=== PATIENT | male | born 1940 | race Caucasian/White ===

== ENCOUNTER → 2016-08-10 | Outpatient (REF) | payer MEDICARE ==
[2016-08-10 12:11] LABS: MEAN CORPUSCULAR HEMOGLOBIN 28.9 pg (27.0-33.0); MEAN CORPUSCULAR HGB CONC 31.8 g/dl (32.0-36.5); MEAN CORPUSCULAR VOLUME 90.8 fl (80.0-96.0); RED CELL DISTRIBUTION WIDTH 13.1 % (11.5-14.5)
[2016-08-10 12:34] LABS: ALBUMIN 3.8 GM/DL (3.2-5.2); ALBUMIN/GLOBULIN RATIO 1.23 (1.00-1.93); BILIRUBIN,TOTAL 0.3 MG/DL (0.2-1.0); CALCIUM LEVEL 9.3 MG/DL (8.8-10.2); CREATININE FOR GFR 1.54 MG/DL (0.70-1.30); GLOMERULAR FILTRATION RATE 46.7 (>42); PERCENT SATURATION 15.8 % (19.7-37.4); POTASSIUM SERUM 4.5 MEQ/L (3.5-5.1); TOTAL PROTEIN 6.9 GM/DL (6.4-8.2)
[2016-08-10 13:07] LABS: ANISOCYTOSIS 1+; BANDS 2 % (< 11); BASOPHILS 1 % (0-4); EOSINOPHILS 1 % (0-5)
[2016-08-11 13:21] LABS: PRETREATED FOLATE FOR RBCFOL 8.9 NG/ML
== END ==
LOC: M SFHCPLAZ 08:48
PROVIDERS: ATTEND Physician Assistant Medical
DX: E53.8 Deficiency of other specified B group vitamins (principal); N18.3 Chronic kidney disease, stage 3 (moderate); E11.9 Type 2 diabetes mellitus without complications; E55.9 Vitamin D deficiency, unspecified

== ENCOUNTER → 2017-02-10 | Outpatient (REF) | payer MEDICARE ==
[2017-02-10 17:44] LABS: ALBUMIN 3.9 GM/DL (3.2-5.2); ALBUMIN/GLOBULIN RATIO 1.26 (1.00-1.93); BILIRUBIN,TOTAL 0.4 MG/DL (0.2-1.0); CALCIUM LEVEL 9.6 MG/DL (8.8-10.2); CREATININE FOR GFR 1.39 MG/DL (0.70-1.30); GLOMERULAR FILTRATION RATE 52.6 (>42); PERCENT SATURATION 21.1 % (19.7-50.0); POTASSIUM SERUM 4.1 MEQ/L (3.5-5.1)
[2017-02-10 18:58] LABS: MEAN CORPUSCULAR HEMOGLOBIN 29.1 pg (27.0-33.0); MEAN CORPUSCULAR HGB CONC 32.9 g/dl (32.0-36.5); MEAN CORPUSCULAR VOLUME 88.4 fl (80.0-96.0); RED CELL DISTRIBUTION WIDTH 12.7 % (11.5-14.5); WHITE BLOOD COUNT 5.3 10^3/uL (4.0-10.0)
[2017-02-10 19:15] LABS: CBCMD ORDERED? YES (YES)
[2017-02-10 20:44] LABS: BASOPHILS 1 % (0-4); EOSINOPHILS 3 % (0-5)
[2017-02-12 11:32] LABS: PRETREATED FOLATE FOR RBCFOL 14.6 NG/ML
== END ==
LOC: M SFHCPLAZ 15:34
PROVIDERS: ATTEND Physician Assistant Medical
DX: E53.8 Deficiency of other specified B group vitamins (principal); E11.9 Type 2 diabetes mellitus without complications; N18.3 Chronic kidney disease, stage 3 (moderate); E55.9 Vitamin D deficiency, unspecified

== ENCOUNTER → 2017-06-24 | Outpatient (REF) | payer MEDICARE | LOC: M SFHCPLAZ 08:49 | DX: E78.2 Mixed hyperlipidemia (principal); E55.9 Vitamin D deficiency, unspecified; E11.9 Type 2 diabetes mellitus without complications ==

== ENCOUNTER → 2017-07-08 | Outpatient (CLI) | payer MEDICARE ==
[2017-07-08 10:42] LABS: ALBUMIN 3.8 GM/DL (3.2-5.2); ALBUMIN/GLOBULIN RATIO 1.15 (1.00-1.93); ALKALINE PHOSPHATASE 31 U/L (45-117); ALT/SGPT 21 U/L (12-78); ANION GAP 9 MEQ/L (8-16); AST/SGOT 15 U/L (7-37); BILIRUBIN,TOTAL 0.4 MG/DL (0.2-1.0); BLOOD UREA NITROGEN 22 MG/DL (7-18); CALCIUM LEVEL 9.1 MG/DL (8.8-10.2); CARBON DIOXIDE LEVEL 25 MEQ/L (21-32); CHLORIDE LEVEL 107 MEQ/L (98-107); CHOLESTEROL LEVEL 118 MG/DL (<200); CREATININE FOR GFR 1.56 MG/DL (0.70-1.30); GLOMERULAR FILTRATION RATE 45.9 (>42); GLUCOSE, FASTING 172 MG/DL (70-100); HDL CHOLESTEROL 23 MG/DL (>40); LDL CHOLESTEROL 61.2 MG/DL (<100); NON-HDL-C 95 MG/DL; POTASSIUM SERUM 4.7 MEQ/L (3.5-5.1); SODIUM LEVEL 141 MEQ/L (136-145); TOTAL PROTEIN 7.1 GM/DL (6.4-8.2); TRIGLYCERIDES LEVEL 169 MG/DL (<150)
[2017-07-08 10:48] LABS: TOTAL 25(OH) VITAMIN D 31.6 NG/ML (30.0-100.0)
[2017-07-08 11:41] LABS: ESTIMATED AVERAGE GLUCOSE 186 MG/DL (60-110); HEMOGLOBIN A1c 8.1 %
== END ==
LOC: M WUC 08:24
DX: E55.9 Vitamin D deficiency, unspecified (principal); E11.9 Type 2 diabetes mellitus without complications; E78.2 Mixed hyperlipidemia
CPT/HCPCS: 80053

== ENCOUNTER 2018-01-07 09:34 | Emergency (ER) | payer MEDICARE ==
[2018-01-07] MEDS: NITROGLYCERIN 0.4 MG SUBL TABLET SL ×3 (10:36→11:13)
[2018-01-07 10:40] LABS: BASO # 0.1 10^3/uL (0.0-0.2); BASO % 0.8 % (0.0-1.0); EOS # 0.1 10^3/uL (0.0-0.50); HEMATOCRIT 47.1 % (42.0-52.0); HEMOGLOBIN 15.8 g/dl (13.5-17.5); IMMATURE GRANULOCYTE % 0.5 % (0-3.0); LYMPH # 0.9 10^3/uL (1.5-4.5); LYMPH % 14.9 % (24.0-44.0); MEAN CORPUSCULAR HEMOGLOBIN 29.5 pg (27.0-33.0); MEAN CORPUSCULAR HGB CONC 33.5 g/dl (32.0-36.5); MONO # 0.4 10^3/uL (0.0-0.8); MONO % 6.8 % (0.0-5.0); NEUTROPHILS # 4.4 10^3/uL (1.8-7.7); PLATELET COUNT, AUTOMATED 193 10^3/uL (150-450); RED BLOOD COUNT 5.35 10^6/uL (4.30-6.10); RED CELL DISTRIBUTION WIDTH 12.8 % (11.5-14.5); WHITE BLOOD COUNT 5.9 10^3/uL (4.0-10.0)
[2018-01-07 10:58] LABS: INR 1.02; PROTHROMBIN TIME 13.5 SECONDS (12.1-14.4)
[2018-01-07 11:25] LABS: ALBUMIN 3.7 GM/DL (3.2-5.2); ALBUMIN/GLOBULIN RATIO 1.23 (1.00-1.93); ALKALINE PHOSPHATASE 36 U/L (45-117); ALT/SGPT 27 U/L (12-78); ANION GAP 11 MEQ/L (8-16); AST/SGOT 15 U/L (7-37); BILIRUBIN,DIRECT 0.1 MG/DL (0.0-0.2); BILIRUBIN,TOTAL 0.4 MG/DL (0.2-1.0); BLOOD UREA NITROGEN 14 MG/DL (7-18); CALCIUM LEVEL 9.5 MG/DL (8.8-10.2); CARBON DIOXIDE LEVEL 23 MEQ/L (21-32); CHLORIDE LEVEL 104 MEQ/L (98-107); CPK CREATINE PHOSPHOKINASE 68 U/L (39-308); CREATININE FOR GFR 1.51 MG/DL (0.70-1.30); GLOMERULAR FILTRATION RATE 47.7 (>42); GLUCOSE, FASTING 289 MG/DL (70-100); LIPASE 145 U/L (73-393); MB/CK RELATIVE INDEX 5.29 (< OR =4); NT-PRO BNP 453 PG/ML (<450); POTASSIUM SERUM 4.4 MEQ/L (3.5-5.1); SODIUM LEVEL 138 MEQ/L (136-145); THYROID STIMULATING HORMONE 0.648 uIU/ML (0.358-3.740); TOTAL PROTEIN 6.7 GM/DL (6.4-8.2); TROPONIN I < 0.02 NG/ML (< 0.10)
[2018-01-07] MEDS ORDERED: ISOVUE-370 76% 100ML VIAL (Q9967) As Ordered (11:50)
[2018-01-07] MEDS: ONDANSETRON 4MG/2ML VIAL (J2405) IV (13:49)
[2018-01-07] MEDS: MORPHINE 4 MG/ML 1ML VIAL/SYRINGE (J2270) IV (13:50)
[2018-01-07 15:01] LABS: CPK CREATINE PHOSPHOKINASE 73 U/L (39-308); MB/CK RELATIVE INDEX 4.25 (< OR =4); TROPONIN I < 0.02 NG/ML (< 0.10)
== END 2018-01-07 16:40 | disposition left against medical advice (07) ==
LOC: M ED 09:34
DX: R07.9 Chest pain, unspecified (principal); R94.31 Abnormal electrocardiogram [ECG] [EKG]; R01.1 Cardiac murmur, unspecified; I48.92 Unspecified atrial flutter; E11.9 Type 2 diabetes mellitus without complications; I10 Essential (primary) hypertension; E78.79 Other disorders of bile acid and cholesterol metabolism; Z86.73 Personal history of transient ischemic attack (TIA), and cerebral infarction without residual deficits; Z79.899 Other long term (current) drug therapy; Z79.84 Long term (current) use of oral hypoglycemic drugs
CPT/HCPCS: J2270

== ENCOUNTER → 2018-02-04 | Outpatient (CLI) | payer MEDICARE ==
[2018-02-04 08:58] LABS: BLOOD UREA NITROGEN 20 MG/DL (7-18); CREATININE FOR GFR 1.45 MG/DL (0.70-1.30); GLUCOSE, FASTING 220 MG/DL (70-100); SODIUM LEVEL 142 MEQ/L (136-145)
[2018-02-04 08:59] LABS: ANION GAP 9 MEQ/L (8-16); CALCIUM LEVEL 9.1 MG/DL (8.8-10.2); CARBON DIOXIDE LEVEL 27 MEQ/L (21-32); CHLORIDE LEVEL 106 MEQ/L (98-107); POTASSIUM SERUM 4.3 MEQ/L (3.5-5.1); TROPONIN I < 0.02 NG/ML (< 0.10); URIC ACID 4.2 MG/DL (3.5-7.2)
[2018-02-04 09:43] LABS: ESTIMATED AVERAGE GLUCOSE 186 MG/DL (60-110); HEMOGLOBIN A1c 8.1 %
[2018-02-04 10:08] LABS: MAU/CREAT RATIO 58.5 MCG/MG (0.0-30.0)
== END ==
LOC: M LAB 07:30
DX: E11.9 Type 2 diabetes mellitus without complications (principal); N18.3 Chronic kidney disease, stage 3 (moderate); Z09 Encounter for follow-up examination after completed treatment for conditions other than malignant neoplasm
CPT/HCPCS: 84550

== ENCOUNTER → 2018-04-26 | Outpatient (CLI) | payer MEDICARE ==
[~2018-04-26] MED LIST: ADV250INH; AMLO10TA5; BENA20TA8; FENO134C; GLIM2TAB; METF10004; METO1TAB87; SIMV5TAB12; VENTAER; VITA10002
[2018-04-26 07:38] LABS: CALCIUM LEVEL 9.1 MG/DL (8.8-10.2); CREATININE FOR GFR 1.48 MG/DL (0.70-1.30); GLOMERULAR FILTRATION RATE 48.8 (>42); POTASSIUM SERUM 4.3 MEQ/L (3.5-5.1)
== END ==
LOC: M LAB 06:53
PROVIDERS: ATTEND Family Medicine
DX: I10 Essential (primary) hypertension (principal)

== ENCOUNTER → 2018-05-11 | Outpatient (CLI) | payer MEDICARE ==
[2018-05-11 07:32] LABS: HEMOGLOBIN A1c 9.2 %
[2018-05-11 07:36] LABS: CREATININE FOR GFR 1.49 MG/DL (0.70-1.30); GLOMERULAR FILTRATION RATE 48.4 (>42); POTASSIUM SERUM 4.2 MEQ/L (3.5-5.1); URIC ACID 3.9 MG/DL (3.5-7.2)
[2018-05-11 07:47] LABS: MAU/CREAT RATIO 108.9 MCG/MG (0.0-30.0)
== END ==
LOC: M LAB 06:40
PROVIDERS: ATTEND Family Medicine
DX: E11.9 Type 2 diabetes mellitus without complications (principal); I10 Essential (primary) hypertension

== ENCOUNTER 2018-06-09 12:57 | Day surgery (SDC) | payer MEDICARE ==
[~2018-06-09] VITALS: Ht 170.2 cm; Wt 93.2 kg
[~2018-06-09 12:57] MED LIST changes: +ADV250INH INH; +ALBU83IN INH; +AMLO10TA5 PO; +ASPI325T PO; +BALANCED SALT IRRIGATION SOLUTION 500ML BAG (FOR OR EYE MACHINE) As Ordered ONE; +BENA40TA7 PO; +CEFUROXIME 1MG/0.1ML INTRACAMERAL INJ As Ordered ONE; +DUOVISC (0.50ML VISCOAT/0.55ML PROVISC) OPHTH KIT As Ordered ONE; +FISH1000 PO; +GLIM4TAB PO; +HYDR-3910 PO; +LIDOCAINE 0.75%/EPINEPHRINE 0.025% IN BSS 1ML SYR INTRACAMERAL (OR ONLY) As Ordered ONE; +METF10004 PO; +MIDAZOLAM INJ 2 MG/2 ML VIAL (J2250) As Ordered ONE; +OFLOXACIN 0.3 % (OCUFLOX) OPTH SOL 5ML OS ONE; +PHENYLEPHRINE 2.5% OPHTH SOL 2ML OS ONE; +POVIDONE-IODINE 5% OPHTH PREP SOL 30ML As Ordered ONE; +PROPARACAINE 0.5% OPHTH SOL 15ML OS ONE; +SIMV20TA2 PO; +TROPICAMIDE 1% OPHTH SOLN 2ML OS ONE; +VENTAER INH; +VITA200048 PO; +VITA500T3 PO; +fentaNYL 100 MCG/2 ML INJECTION (J3010) As Ordered ONE
[2018-06-09 15:10] VITALS: BP 180/82
--- NOTE | 2018-06-10 15:15 | RO ---
DATE OF PROCEDURE: 06/09/2018 PREOPERATIVE DIAGNOSIS: 1. Visually significant nuclear sclerotic cataract left eye. POSTOPERATIVE DIAGNOSIS: 1. Visually significant nuclear sclerotic cataract left eye. PROCEDURE: 1. Cataract extraction with use of phacoemulsification and placement of intraocular lens, AU00T0, 21.5, D, left eye. SURGEON: Mike Law DO CHIEF INTERNAL AUDITOR: None. ANESTHESIA: Local with monitored anesthesia care (MAC). COMPLICATIONS: None. POSTOPERATIVE CONDITION: Stable. INDICATIONS FOR SURGERY: 1. Blurred vision affecting patients activities of daily living. DESCRIPTION OF PROCEDURE: The patient was seen in the preoperative area and properly identified. The correct operative eye was identified and marked. The patient received topical anesthetic, antibiotics, and topical dilating drops. The patient was then transferred to the operating room. The correct side was re-identified, and a time-out was performed. The eye was prepped and draped in a sterile fashion. The eyelids were isolated with Tegaderm tape, and the lids were held open with an adjustable speculum. A 1.0 mm paracentesis incision was made. Intraocular preservative-free Shugarcaine was then injected into the anterior chamber. Viscoelastic was then injected into the anterior chamber through the paracentesis. Using a 2.4 mm sharp-tipped keratome, the anterior chamber was entered via a temporal clear cornea incision. A continuous curvilinear capsulorrhexis was created with Utrata forceps. Hydrodissection was performed with balanced salt solution (BSS) on a blunt cannula until the nucleus was able to rotate freely. The crystalline lens was phacoemulsified and aspirated. Irrigation/aspiration was used to remove the cortical material. Cohesive viscoelastic was placed into the capsular bag to deepen it. The implant was placed into the capsular bag and allowed to unfold. Placement was confirmed by visualizing the anterior capsulorrhexis. Irrigation/aspiration was used to remove the viscoelastic. The clear corneal incision was hydrated with BSS on a blunt cannula. The lens was well positioned. The incisions were then tested for leaks and found to be negative. The eye was then palpated for appropriate pressure and adjusted accordingly with BSS. The eyelid speculum was then carefully removed. A shield was placed over the eye. The patient tolerated the procedure well and was discharged to the recovery unit in a stable condition.
== END 2018-06-09 15:00 | disposition home or self-care (01) ==
LOC: M SDC 12:57
PROVIDERS: ATTEND Ophthalmology
DX: H25.12 Age-related nuclear cataract, left eye (principal); I48.91 Unspecified atrial fibrillation; I12.9 Hypertensive chronic kidney disease with stage 1 through stage 4 chronic kidney disease, or unspecified chronic kidney disease; E11.22 Type 2 diabetes mellitus with diabetic chronic kidney disease; M54.9 Dorsalgia, unspecified; J44.9 Chronic obstructive pulmonary disease, unspecified; N18.9 Chronic kidney disease, unspecified; Z79.899 Other long term (current) drug therapy; Z79.82 Long term (current) use of aspirin; Z79.84 Long term (current) use of oral hypoglycemic drugs; Z86.711 Personal history of pulmonary embolism
CPT/HCPCS: 66984; J2250; J3010; V2632

== ENCOUNTER → 2018-08-09 | Outpatient (CLI) | payer MEDICARE ==
[~2018-08-09] MED LIST changes: +ASPI-1 PO; -ASPI325T PO; -BALANCED SALT IRRIGATION SOLUTION 500ML BAG (FOR OR EYE MACHINE) As Ordered ONE; -CEFUROXIME 1MG/0.1ML INTRACAMERAL INJ As Ordered ONE; -DUOVISC (0.50ML VISCOAT/0.55ML PROVISC) OPHTH KIT As Ordered ONE; -LIDOCAINE 0.75%/EPINEPHRINE 0.025% IN BSS 1ML SYR INTRACAMERAL (OR ONLY) As Ordered ONE; -MIDAZOLAM INJ 2 MG/2 ML VIAL (J2250) As Ordered ONE; -OFLOXACIN 0.3 % (OCUFLOX) OPTH SOL 5ML OS ONE; -PHENYLEPHRINE 2.5% OPHTH SOL 2ML OS ONE; -POVIDONE-IODINE 5% OPHTH PREP SOL 30ML As Ordered ONE; -PROPARACAINE 0.5% OPHTH SOL 15ML OS ONE; -TROPICAMIDE 1% OPHTH SOLN 2ML OS ONE; -fentaNYL 100 MCG/2 ML INJECTION (J3010) As Ordered ONE
[2018-08-09 07:06] LABS: HEMOGLOBIN A1c 8.6 %
[2018-08-09 07:16] LABS: CALCIUM LEVEL 8.8 MG/DL (8.8-10.2); CREATININE FOR GFR 1.34 MG/DL (0.70-1.30); GLOMERULAR FILTRATION RATE 54.6 (>35); POTASSIUM SERUM 4.2 MEQ/L (3.5-5.1)
== END ==
LOC: M LAB 06:19
PROVIDERS: ATTEND Family Medicine
DX: E11.9 Type 2 diabetes mellitus without complications (principal); I12.9 Hypertensive chronic kidney disease with stage 1 through stage 4 chronic kidney disease, or unspecified chronic kidney disease

== ENCOUNTER → 2018-11-17 | Outpatient (CLI) | payer MEDICARE ==
[~2018-11-17] MED LIST changes: +BENA40TA5 PO; -BENA40TA7 PO; +CYAN100049; +CYAN500T8 PO; -GLIM2TAB; +GLIM2TAB4; -GLIM4TAB PO; +GLIM4TAB5 PO; -SIMV20TA2 PO; +SIMV20TA22 PO; -VITA10002; -VITA500T3 PO
[2018-11-17 07:34] LABS: HEMOGLOBIN A1c 8.1 %
[2018-11-17 07:45] LABS: CALCIUM LEVEL 8.6 MG/DL (8.8-10.2); CREATININE FOR GFR 1.39 MG/DL (0.70-1.30); GLOMERULAR FILTRATION RATE 52.3 (>35); POTASSIUM SERUM 4.1 MEQ/L (3.5-5.1)
== END ==
LOC: M LAB 06:41
PROVIDERS: ATTEND Family Medicine
DX: N18.3 Chronic kidney disease, stage 3 (moderate) (principal); I12.9 Hypertensive chronic kidney disease with stage 1 through stage 4 chronic kidney disease, or unspecified chronic kidney disease

== ENCOUNTER → 2019-02-16 | Outpatient (CLI) | payer MEDICARE ==
[~2019-02-16] MED LIST changes: -BENA40TA5 PO; +BENA40TA7 PO; +GLIM2TAB2; -GLIM2TAB4; +GLIM4TAB3 PO; -GLIM4TAB5 PO; +SIMV20TA2 PO; -SIMV20TA22 PO
[2019-02-16 06:55] LABS: HEMOGLOBIN A1c 7.2 %
[2019-02-16 07:07] LABS: CALCIUM LEVEL 9.4 MG/DL (8.8-10.2); CHOLESTEROL RISK RATIO 3.03 (<5); CREATININE FOR GFR 1.39 MG/DL (0.70-1.30); GLOMERULAR FILTRATION RATE 52.3 (>35); POTASSIUM SERUM 4.7 MEQ/L (3.5-5.1)
== END ==
LOC: M LAB 06:07
PROVIDERS: ATTEND Family Medicine
DX: E11.22 Type 2 diabetes mellitus with diabetic chronic kidney disease (principal); N18.3 Chronic kidney disease, stage 3 (moderate); E78.2 Mixed hyperlipidemia

== ENCOUNTER → 2019-11-10 | Outpatient (CLI) | payer MEDICARE ==
[~2019-11-10] MED LIST changes: -AMLO10TA5; -AMLO10TA5 PO; +AMLO1TAB25; +AMLO1TAB25 PO; +BENA40TA5 PO; -BENA40TA7 PO; -GLIM2TAB2; +GLIM2TAB4; -GLIM4TAB3 PO; +GLIM4TAB5 PO; -SIMV20TA2 PO; +SIMV20TA22 PO
[2019-12-28 10:47] LABS: HEMOGLOBIN A1c 7.2 %
[2020-01-29 15:49] LABS: GLUCOSE, FASTING SEE SEPARATE REPORT
== END ==
LOC: M LAB 10:13
PROVIDERS: ATTEND Family Medicine
DX: I10 Essential (primary) hypertension (principal); E11.9 Type 2 diabetes mellitus without complications

== ENCOUNTER → 2020-03-01 | Outpatient (REF) | payer MEDICARE ==
[2020-03-01 14:55] LABS: CALCIUM LEVEL 9.8 MG/DL (8.8-10.2); CREATININE FOR GFR 1.75 MG/DL (0.70-1.30); POTASSIUM SERUM 5.5 MEQ/L (3.5-5.1)
== END ==
LOC: M SFHCPLAZ 08:30
PROVIDERS: ATTEND Family Medicine
DX: E11.22 Type 2 diabetes mellitus with diabetic chronic kidney disease (principal); I10 Essential (primary) hypertension

== ENCOUNTER → 2020-06-24 | Outpatient (REF) | payer MEDICARE ==
[~2020-06-24] MED LIST changes: +CYAN500T14 PO; -CYAN500T8 PO
[2020-06-24 13:04] LABS: HEMATOCRIT 42.4 % (42.0-52.0); HEMOGLOBIN 13.6 g/dl (13.5-17.5); MEAN CORPUSCULAR HEMOGLOBIN 29.3 pg (27.0-33.0); MEAN CORPUSCULAR HGB CONC 32.1 g/dl (32.0-36.5); MEAN CORPUSCULAR VOLUME 91.4 fl (80.0-96.0); PLATELET COUNT, AUTOMATED 214 10^3/uL (150-450); RED BLOOD COUNT 4.64 10^6/uL (4.30-6.10); WHITE BLOOD COUNT 4.2 10^3/uL (4.0-10.0)
[2020-06-24 13:42] LABS: CALCIUM LEVEL 9.5 MG/DL (8.8-10.2); CHOLESTEROL RISK RATIO 3.642 (<5); CREATININE FOR GFR 1.61 MG/DL (0.70-1.30); PERCENT SATURATION 16.5 % (19.7-50.0)
[2020-06-24 13:44] LABS: TOTAL 25(OH) VITAMIN D 44.9 NG/ML (30.0-100.0)
[2020-06-24 14:24] LABS: HEMOGLOBIN A1c 8.4 %
== END ==
LOC: M SFHCPLAZ 08:48
PROVIDERS: ATTEND Family Medicine
DX: N18.32 Chronic kidney disease, stage 3b (principal); D50.9 Iron deficiency anemia, unspecified; E11.22 Type 2 diabetes mellitus with diabetic chronic kidney disease; E78.2 Mixed hyperlipidemia; I12.9 Hypertensive chronic kidney disease with stage 1 through stage 4 chronic kidney disease, or unspecified chronic kidney disease; E55.9 Vitamin D deficiency, unspecified; E53.8 Deficiency of other specified B group vitamins

== ENCOUNTER → 2020-07-11 | Outpatient (REF) | payer MEDICARE ==
[2020-07-11 14:33] LABS: CALCIUM LEVEL 9.5 MG/DL (8.8-10.2); CREATININE FOR GFR 1.79 MG/DL (0.70-1.30); GLOMERULAR FILTRATION RATE 38.9 (>35); POTASSIUM SERUM 4.7 MEQ/L (3.5-5.1)
== END ==
LOC: M PLALAB 09:25
PROVIDERS: ATTEND Family Medicine
DX: E11.22 Type 2 diabetes mellitus with diabetic chronic kidney disease (principal)

== ENCOUNTER → 2020-08-21 | Outpatient (REF) | payer MEDICARE ==
[2020-08-21 13:39] LABS: BASO % 0.9 % (0.0-1.0); EOS # 0.2 10^3/uL (0.0-0.5); EOS % 5.7 % (0.0-3.0); HEMATOCRIT 44.3 % (42.0-52.0); HEMOGLOBIN 14.1 g/dl (13.5-17.5); LYMPH # 1.1 10^3/uL (1.5-5.0); LYMPH % 26.2 % (24.0-44.0); MEAN CORPUSCULAR HEMOGLOBIN 29.1 pg (27.0-33.0); MEAN CORPUSCULAR HGB CONC 31.8 g/dl (32.0-36.5); MEAN CORPUSCULAR VOLUME 91.3 fl (80.0-96.0); MONO # 0.7 10^3/uL (0.0-0.8); MONO % 15.8 % (2.0-8.0); NEUTROPHILS # 2.2 10^3/uL (1.5-8.5); NEUTROPHILS % 51.2 % (36.0-66.0); PLATELET COUNT, AUTOMATED 231 10^3/uL (150-450); RED BLOOD COUNT 4.85 10^6/uL (4.30-6.10); WHITE BLOOD COUNT 4.2 10^3/uL (4.0-10.0)
[2020-08-21 13:51] LABS: INR 1.08; PROTHROMBIN TIME 14.2 SECONDS (12.5-14.3)
[2020-08-21 14:21] LABS: ALBUMIN 3.8 GM/DL (3.2-5.2); BILIRUBIN,TOTAL 0.3 MG/DL (0.2-1.0); CALCIUM LEVEL 10.4 MG/DL (8.8-10.2); CREATININE FOR GFR 2.06 MG/DL (0.70-1.30); GLOMERULAR FILTRATION RATE 33.1 (>35); POTASSIUM SERUM 4.8 MEQ/L (3.5-5.1); THYROID STIMULATING HORMONE 1.25 uIU/ML (0.358-3.740); TOTAL PROTEIN 7.5 GM/DL (6.4-8.2)
== END ==
LOC: M SFHCPLAZ 09:36
PROVIDERS: ATTEND Family Medicine
DX: R41.3 Other amnesia (principal); I48.20 Chronic atrial fibrillation, unspecified

== ENCOUNTER → 2020-08-28 | Outpatient (CLI) | payer MEDICARE ==
[2020-08-28 09:04] LABS: CALCIUM LEVEL 8.9 MG/DL (8.8-10.2); CREATININE FOR GFR 1.86 MG/DL (0.70-1.30); GLOMERULAR FILTRATION RATE 37.2 (>35); POTASSIUM SERUM 4.8 MEQ/L (3.5-5.1)
[2020-08-28 09:16] LABS: PTH INTACT 42.3 PG/ML (18.5-88.0); TOTAL 25(OH) VITAMIN D 36.8 NG/ML (30.0-100.0)
== END ==
LOC: M LAB 07:28
PROVIDERS: ATTEND Family Medicine
DX: E83.52 Hypercalcemia (principal)

== ENCOUNTER → 2020-09-13 | Outpatient (CLI) | payer MEDICARE ==
--- NOTE | 2020-09-13 11:29 | REPVR ---
PROCEDURE INFORMATION: Exam: MR Head Without Contrast Exam date and time: 09/13/2020 11:20 AM Age: 80 years old Clinical indication: Altered mental status/memory loss; Age related cognitive decline; Additional info: Memory changes TECHNIQUE: Imaging protocol: MR of the head without contrast. COMPARISON: MRA BRAIN W/O CONTRAST 09/13/2020 10:22 AM FINDINGS: Brain: There is a 5 mm focus of high signal abnormality within the posterior right centrum semiovale on the diffusion sequence. There is moderate high signal abnormality in the periventricular white matter and centrum semiovale, best seen on the flair images. These changes are nonspecific but likely represent chronic small vessel ischemic change. There are chronic lacunar infarcts. There are chronic brainstem ischemic changes. 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 There is moderate cerebral and cerebellar atrophy. There is moderate pannus along the transverse ligament. Cerebral ventricles: Normal. No ventriculomegaly. Bones/joints: Unremarkable. Paranasal sinuses: There is mild sinus disease. Mastoid air cells: Normal as visualized. No mastoid effusion. Orbital cavity: Unremarkable. Soft tissues: Unremarkable. IMPRESSION: 1. There is a 5 mm focus of high signal abnormality within the posterior right centrum semiovale on the diffusion sequence. Please correlate clinically. 2. There is moderate high signal abnormality in the periventricular white matter and centrum semiovale, best seen on the flair images. These changes are nonspecific but likely represent chronic small vessel ischemic change. 3. There are chronic lacunar infarcts. 4. There are chronic brainstem ischemic changes. 5. 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 6. There is moderate cerebral and cerebellar atrophy. Electronically signed by: Ronaldo Fajardo On 09/13/2020 11:29:03 AM
--- NOTE | 2020-09-13 11:35 | REPVR ---
PROCEDURE INFORMATION: Exam: MRA Head Without Contrast; Arteriography Exam date and time: 09/13/2020 11:20 AM Age: 80 years old Clinical indication: Cognitive deficit; Age-related cognitive decline; Additional info: Memory changes TECHNIQUE: Imaging protocol: Magnetic resonance angiography head without contrast. Exam focused on the arteries. COMPARISON: No relevant prior studies available. FINDINGS: ANTERIOR CIRCULATION: Right internal carotid artery: Intracranial segment is patent with no significant stenosis. No aneurysm. Right middle cerebral artery: No occlusion or significant stenosis. No aneurysm. Right anterior cerebral artery: No occlusion or significant stenosis. No aneurysm. Left internal carotid artery: Intracranial segment is patent with no significant stenosis. No aneurysm. Left middle cerebral artery: No occlusion or significant stenosis. No aneurysm. Left anterior cerebral artery: No occlusion or significant stenosis. No aneurysm. POSTERIOR CIRCULATION: Right vertebral artery: There is either a critical stenosis or occlusion of the intracranial right vertebral artery. Left vertebral artery: No occlusion or significant stenosis. No aneurysm. 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 Right posterior cerebral artery: No occlusion or significant stenosis. No aneurysm. Left posterior cerebral artery: There is a origin of the left posterior cerebral artery. The left posterior cerebral artery is not well visualized along its course. There may be a stenosis. Alternatively, this could be due to patient motion artifact and technique. IMPRESSION: 1. 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 Follow-up CTA is recommended. 2. The left posterior cerebral artery is not well visualized along its course. There may be a stenosis. Alternatively, this could be due to patient motion artifact and technique. 3. There is either a critical stenosis or occlusion of the intracranial right vertebral artery. Electronically signed by: Ronaldo Fajardo On 09/13/2020 11:35:33 AM
== END ==
LOC: M PLARAD 09:52
PROVIDERS: ATTEND Family Medicine
DX: R41.3 Other amnesia (principal); I63.81 Other cerebral infarction due to occlusion or stenosis of small artery; I67.82 Cerebral ischemia; G31.9 Degenerative disease of nervous system, unspecified

== ENCOUNTER → 2020-09-23 | Outpatient (CLI) | payer MEDICARE ==
--- NOTE | 2020-09-23 10:32 | REP ---
INDICATION: CKD 3B, ATHSCL OF RENAL ARTERY. COMPARISON: 05/23/2012. TECHNIQUE: Real-time sonographic evaluation of kidneys performed, with duplex Doppler evaluation of main renal arteries bilaterally. FINDINGS: The kidneys are normal in size and echotexture, right kidney measuring 10.4 x 5.3 x 5.7 cm and left kidney 11.4 x 5.0 x 4.9 cm. There is no hydronephrosis bilaterally. There is a simple cyst in the mid right kidney 1.3 cm in diameter. Real-time ultrasound evaluation and duplex Doppler interrogation of bilateral main renal arteries is performed. The peak systolic velocity abdominal aorta at the level of the renal arteries is 122 centimeter/second. Peak systolic velocity of the main right renal artery is 175 cm/sec. Renal to aortic ratio 1.4. Resistive indices right kidney range between 0.80 and 0.86. Acceleration times range between 0.022 and 0.038. Peak systolic velocity of the main left renal artery is 93.2 centimeter/second. Renal to aortic ratio 0.76. Resistive indices left kidney range between 0.72 and 0.79. Acceleration times range between 0.024 and 0.026. IMPRESSION: No compelling duplex Doppler sonographic evidence of hemodynamically significant stenosis of the renal arteries bilaterally. <Electronically signed by Reuben Delgado > 09/23/20 [id number]
== END ==
LOC: M RAD 08:54
PROVIDERS: ATTEND Internal Medicine Nephrology
DX: N18.32 Chronic kidney disease, stage 3b (principal); I70.1 Atherosclerosis of renal artery

== ENCOUNTER → 2020-10-08 | Outpatient (CLI) | payer MEDICARE ==
[2020-10-08 14:09] LABS: CALCIUM LEVEL 9.1 MG/DL (8.8-10.2); CREATININE FOR GFR 1.7 MG/DL (0.70-1.30); GLOMERULAR FILTRATION RATE 41.3 (>35); POTASSIUM SERUM 4.4 MEQ/L (3.5-5.1)
== END ==
LOC: M PLALAB 12:04
PROVIDERS: ATTEND Family Medicine
DX: N18.4 Chronic kidney disease, stage 4 (severe) (principal)

== ENCOUNTER → 2020-10-22 | Outpatient (CLI) | payer MEDICARE ==
[~2020-10-22] MED LIST changes: +ASPI-161 PO; +ATIV1TAB7 PO; +ATRO1OPD PO; +BENA-8; -BENA20TA8; -BENA40TA5 PO; +BENA40TA84 PO; +CLOP75TA2 PO; +CYCL5TAB PO; +D31000TA2 PO; +FURO20TA2 PO; +HYDR-3911 PO; +JANU25TA PO; +LEVS0.124 SL; +MORP10SO PO; +ONDA4TAB6 PO; +PRED10TA2 PO; +PROAAER10 INH; +TRAN1DIS4 TOP; +VITMTA PO
[2020-10-22 10:57] LABS: BASO # 0.1 10^3/uL (0.0-0.2); EOS # 0.2 10^3/uL (0.0-0.5); EOS % 3.6 % (0.0-3.0); HEMATOCRIT 38.1 % (42.0-52.0); HEMOGLOBIN 12.3 g/dl (13.5-17.5); LYMPH # 0.8 10^3/uL (1.5-5.0); LYMPH % 15.6 % (24.0-44.0); MEAN CORPUSCULAR HEMOGLOBIN 29.2 pg (27.0-33.0); MEAN CORPUSCULAR HGB CONC 32.3 g/dl (32.0-36.5); MEAN CORPUSCULAR VOLUME 90.5 fl (80.0-96.0); MONO # 0.5 10^3/uL (0.0-0.8); MONO % 10.2 % (2.0-8.0); NEUTROPHILS # 3.5 10^3/uL (1.5-8.5); NEUTROPHILS % 69.2 % (36.0-66.0); PLATELET COUNT, AUTOMATED 210 10^3/uL (150-450); RED BLOOD COUNT 4.21 10^6/uL (4.30-6.10)
[2020-10-22 11:21] LABS: C REACTIVE PROTEIN QUANTITATIV 1.89 MG/DL (0.00-0.30); URIC ACID 9.3 MG/DL (3.5-7.2)
[2020-10-22 11:26] LABS: ERYTHROCYTE SEDIMENTATION RATE 52 mm/hr (0-20)
== END ==
LOC: M PLAIMG 08:09
PROVIDERS: ATTEND Family Medicine
DX: M79.675 Pain in left toe(s) (principal)

== ENCOUNTER 2020-10-29 22:02 | Inpatient (IN) | payer MEDICARE ==
[~2020-10-29] VITALS: Ht 170.2 cm; Wt 79.2 kg
[~2020-10-29 22:02] MED LIST changes: -ASPI-161 PO; -ATIV1TAB7 PO; -ATRO1OPD PO; -CLOP75TA2 PO; -CYCL5TAB PO; -D31000TA2 PO; -FURO20TA2 PO; -HYDR-3911 PO; -JANU25TA PO; -LEVS0.124 SL; -MORP10SO PO; -ONDA4TAB6 PO; -PRED10TA2 PO; -PROAAER10 INH; -TRAN1DIS4 TOP; -VITMTA PO
[2020-10-29] MEDS ORDERED: NS 1,000 ML IV ONE (22:35)
[2020-10-29] MEDS ORDERED: LIDOCAINE 2% 5ML JELLY UROJET TOP ONE (22:35)
[2020-10-29 23:13] LABS: BASO % 0.1 % (0.0-1.0); EOS # 0.1 10^3/uL (0.0-0.5); EOS % 0.6 % (0.0-3.0); HEMATOCRIT 39.7 % (42.0-52.0); HEMOGLOBIN 13.1 g/dl (13.5-17.5); LYMPH # 0.8 10^3/uL (1.5-5.0); LYMPH % 3.9 % (24.0-44.0); MEAN CORPUSCULAR HEMOGLOBIN 29.5 pg (27.0-33.0); MEAN CORPUSCULAR VOLUME 89.4 fl (80.0-96.0); MONO # 0.9 10^3/uL (0.0-0.8); MONO % 4.7 % (2.0-8.0); NEUTROPHILS # 17.9 10^3/uL (1.5-8.5); NEUTROPHILS % 89.8 % (36.0-66.0); PLATELET COUNT, AUTOMATED 209 10^3/uL (150-450); RED BLOOD COUNT 4.44 10^6/uL (4.30-6.10)
[2020-10-29 23:19] LABS: VENOUS BASE EXCESS 0.1 (-2.0-2.0); VENOUS HCO3 25.5 MEQ/L (23.0-27.0); VENOUS O2 SATURATION 81.2 % (60.0-80.0); VENOUS PARTIAL PRESSURE O2 44.4 mmHg (30.0-50.0); VENOUS PH 7.381 UNITS (7.330-7.430); VENOUS STANDARD HCO3 24.2 MEQ/L; VENOUS TOTAL CO2 26.9 MEQ/L (24.0-28.0)
[2020-10-29] MEDS ORDERED: cefTRIAXone SOD 2 GM in D5W MINI-BAG PLUS 50 ML IV ONE (23:35)
[2020-10-29 23:55] LABS: ALBUMIN 3.2 GM/DL (3.2-5.2); ALT/SGPT 24 U/L (12-78); BILIRUBIN,DIRECT 0.2 MG/DL (0.0-0.2); BILIRUBIN,TOTAL 0.4 MG/DL (0.2-1.0); BLOOD UREA NITROGEN 40 MG/DL (7-18); CALCIUM LEVEL 8.6 MG/DL (8.8-10.2); CARBON DIOXIDE LEVEL 29 MEQ/L (21-32); CHLORIDE LEVEL 101 MEQ/L (98-107); CK-MB VALUE MASS 1.1 NG/ML (<3.6); CPK CREATINE PHOSPHOKINASE 65 U/L (39-308); CREATININE FOR GFR 1.96 MG/DL (0.70-1.30); GLUCOSE, FASTING 130 MG/DL (70-100); MB/CK RELATIVE INDEX 1.69 (< OR =4); NT-PRO BNP 1175 PG/ML (<450); SODIUM LEVEL 136 MEQ/L (136-145); TROPONIN I < 0.02 NG/ML (< 0.10)
[2020-10-30] VITALS (23 sets, daily range): BP systolic 123–173; BP diastolic 56–81
[2020-10-30] MEDS ORDERED: CYCL5TAB PO (01:01)
[2020-10-30] MEDS ORDERED: ASPI-161 PO (01:01)
[2020-10-30] MEDS ORDERED: VITMTA PO (01:01)
[2020-10-30] MEDS ORDERED: JANU25TA PO (01:01)
[2020-10-30] MEDS ORDERED: D31000TA2 PO (01:01)
[2020-10-30] MEDS ORDERED: PROAAER10 INH (01:01)
[2020-10-30] MEDS ORDERED: HYDR-3911 PO (01:01)
[2020-10-30] MEDS ORDERED: FURO20TA2 PO (01:01)
[2020-10-30] MEDS ORDERED: CLOP75TA2 PO (01:01)
[2020-10-30] MEDS ORDERED: PRED10TA2 PO (01:01)
[2020-10-30] MEDS ORDERED: HOME MED LIST COMPLETE! XX SCH (01:05)
[2020-10-30] MEDS ORDERED: NS 1,000 ML IV ONE (01:10)
[2020-10-30] MEDS ORDERED: ONDANSETRON 4MG/2ML VIAL IV PRN (02:30)
[2020-10-30] MEDS ORDERED: VANCOMYCIN HCL 750 MG, VIAL MATE ADAPTER 1 EACH in NS 250 ML IV ONE ×2 (03:00→04:00)
[2020-10-30] MEDS ORDERED: ALBUTEROL 90 MCG/ACT 8GM HFA INHALER INH PRN (03:30)
[2020-10-30] MEDS ORDERED: LEVALBUTEROL 1.25 MG/0.5 ML CONCENTRATE NEB INH PRN (03:30)
[2020-10-30] MEDS: LEVALBUTEROL 1.25 MG/0.5 ML CONCENTRATE NEB INH SCH ×6 (04:00→23:13)
[2020-10-30] MEDS ORDERED: MORPHINE 4 MG/ML 1ML VIAL/SYRINGE (J2270) IV ONE (04:20)
[2020-10-30] MEDS ORDERED: NITROGLYCERIN 0.4 MG SUBL TABLET SL PRN (04:20)
[2020-10-30] MEDS ORDERED: **hydrALAZINE** 50 MG TAB PO ONE (04:20)
[2020-10-30] MEDS ORDERED: BENAZEPRIL 20 MG TAB PO ONE (04:25)
[2020-10-30] MEDS ORDERED: GLUCOSE 4GM CHEW TABLET PO PRN (04:30)
[2020-10-30] MEDS ORDERED: GLUCAGON INJ 1MG VIAL SC PRN (04:30)
[2020-10-30] MEDS ORDERED: DEXTROSE 50% 50 ML SYRINGE IV PRN (04:30)
[2020-10-30 04:31] LABS: C REACTIVE PROTEIN QUANTITATIV 12.6 MG/DL (0.00-0.30)
[2020-10-30] MEDS ORDERED: LEVALBUTEROL 1.25 MG/0.5 ML CONCENTRATE NEB NEB ONE (04:45)
[2020-10-30 04:51] LABS: CK-MB VALUE MASS 1.8 NG/ML (<3.6); MB/CK RELATIVE INDEX 1.46 (< OR =4); TROPONIN I 0.02 NG/ML (< 0.10)
[2020-10-30] MEDS: ACETAMINOPHEN TAB 650MG DOSE (2X325MG) PO PRN ×3 (05:22→20:45)
[2020-10-30] MEDS: hydrALAZINE 20MG/ML 1ML VIAL (J0360 PER 20MG) IV SCH ×5 (05:28→20:45)
[2020-10-30] MEDS ORDERED: HumaLOG INSULIN (NovoLOG) PER UNIT SC SCH (06:00)
[2020-10-30 06:04] LABS: BASO % 0.2 % (0.0-1.0); EOS # 0.1 10^3/uL (0.0-0.5); EOS % 0.8 % (0.0-3.0); HEMATOCRIT 36.3 % (42.0-52.0); HEMOGLOBIN 11.8 g/dl (13.5-17.5); LYMPH # 0.7 10^3/uL (1.5-5.0); LYMPH % 3.8 % (24.0-44.0); MEAN CORPUSCULAR HEMOGLOBIN 29.4 pg (27.0-33.0); MEAN CORPUSCULAR HGB CONC 32.5 g/dl (32.0-36.5); MEAN CORPUSCULAR VOLUME 90.5 fl (80.0-96.0); MONO # 0.9 10^3/uL (0.0-0.8); MONO % 5.3 % (2.0-8.0); NEUTROPHILS # 15.3 10^3/uL (1.5-8.5); NEUTROPHILS % 88.7 % (36.0-66.0); PLATELET COUNT, AUTOMATED 168 10^3/uL (150-450); RED BLOOD COUNT 4.01 10^6/uL (4.30-6.10); WHITE BLOOD COUNT 17.3 10^3/uL (4.0-10.0)
[2020-10-30 06:29] LABS: CALCIUM LEVEL 7.8 MG/DL (8.8-10.2); CREATININE FOR GFR 1.68 MG/DL (0.70-1.30); GLOMERULAR FILTRATION RATE 41.9 (>35); MAGNESIUM LEVEL 1.9 MG/DL (1.8-2.4)
[2020-10-30] MEDS: PIPERACILLIN/TAZOBACTAM SOD 3.375 GM in D5W MINI-BAG PLUS 50 ML IV SCH ×3 (06:49→17:35)
[2020-10-30] MEDS ORDERED: GLIMEPIRIDE 2 MG TAB PO SCH (07:30)
[2020-10-30] MEDS ORDERED: LORazepam 2 MG TAB PO PRN (07:55)
[2020-10-30] MEDS: SIMVASTATIN 20 MG TAB PO SCH (08:07)
[2020-10-30] MEDS: VITAMIN D 1,000 INTERNATIONAL UNITS TABLET PO SCH (08:07)
[2020-10-30] MEDS: LACTOBACILLUS ACIDOPHILUS CAP (BACID) PO SCH ×4 (08:07→20:45)
[2020-10-30] MEDS: ISOSORBIDE DIN. (ISORDIL) 20 MG TAB PO SCH ×3 (08:08→17:35)
[2020-10-30] MEDS: FOLIC ACID 1 MG TAB PO SCH (08:13)
[2020-10-30] MEDS: MULTIVITAMINS/MINERALS THERAP 1 TAB PO SCH (08:13)
[2020-10-30] MEDS: THIAMINE 100 MG TAB PO SCH (08:13)
[2020-10-30] MEDS ORDERED: **hydrALAZINE** 50 MG TAB PO SCH (09:00)
[2020-10-30] MEDS ORDERED: CLOPIDOGREL 75 MG TAB PO SCH (09:00)
[2020-10-30] MEDS ORDERED: CYANOCOBALAMIN 500 MCG TAB PO SCH (09:00)
[2020-10-30] MEDS ORDERED: ASPIRIN 81MG ENTERIC TABLET PO SCH (09:00)
[2020-10-30] MEDS ORDERED: BENAZEPRIL 20 MG TAB PO SCH (09:00)
[2020-10-30] MEDS: HumaLOG INSULIN (NovoLOG) PER UNIT SC SCH ×3 (12:52→20:46)
[2020-10-30 13:36] LABS: FOLATE 12.9 NG/ML (>5.4); VITAMIN B12 LEVEL 1789 PG/ML (247-911)
[2020-10-30] MEDS: VANCOMYCIN HCL 1,000 MG, VIAL MATE ADAPTER 1 EACH in NS 250 ML IV SCH (20:45)
[2020-10-30] MEDS ORDERED: CYCLOBENZAPRINE 5MG TABLET PO SCH (21:00)
[2020-10-31] VITALS (69 sets, daily range): BP systolic 117–230; BP diastolic 49–146
[2020-10-31] MEDS: hydrALAZINE 20MG/ML 1ML VIAL (J0360 PER 20MG) IV SCH ×5 (00:09→16:19)
[2020-10-31] MEDS: PIPERACILLIN/TAZOBACTAM SOD 3.375 GM in D5W MINI-BAG PLUS 50 ML IV SCH ×2 (00:09→06:08)
[2020-10-31] MEDS: ISOSORBIDE DIN. (ISORDIL) 20 MG TAB PO SCH ×4 (00:09→17:41)
[2020-10-31] MEDS: ACETAMINOPHEN TAB 650MG DOSE (2X325MG) PO PRN ×4 (00:17→20:23)
[2020-10-31] MEDS: LEVALBUTEROL 1.25 MG/0.5 ML CONCENTRATE NEB INH SCH ×7 (03:14→23:13)
[2020-10-31 05:02] LABS: BASO % 0.1 % (0.0-1.0); HEMATOCRIT 35.1 % (42.0-52.0); HEMOGLOBIN 11.5 g/dl (13.5-17.5); LYMPH # 0.4 10^3/uL (1.5-5.0); LYMPH % 1.9 % (24.0-44.0); MEAN CORPUSCULAR HEMOGLOBIN 29.3 pg (27.0-33.0); MEAN CORPUSCULAR HGB CONC 32.8 g/dl (32.0-36.5); MEAN CORPUSCULAR VOLUME 89.5 fl (80.0-96.0); MONO # 1.1 10^3/uL (0.0-0.8); MONO % 5.3 % (2.0-8.0); NEUTROPHILS # 18.6 10^3/uL (1.5-8.5); NEUTROPHILS % 91.6 % (36.0-66.0); PLATELET COUNT, AUTOMATED 162 10^3/uL (150-450); RED BLOOD COUNT 3.92 10^6/uL (4.30-6.10); WHITE BLOOD COUNT 20.4 10^3/uL (4.0-10.0)
[2020-10-31 05:21] LABS: CALCIUM LEVEL 8.3 MG/DL (8.8-10.2); CREATININE FOR GFR 1.99 MG/DL (0.70-1.30); GLOMERULAR FILTRATION RATE 34.4 (>35); POTASSIUM SERUM 3.8 MEQ/L (3.5-5.1)
[2020-10-31] MEDS ORDERED: NS 1,000 ML IV SCH (07:55)
[2020-10-31] MEDS: HumaLOG INSULIN (NovoLOG) PER UNIT SC SCH ×4 (08:58→22:18)
[2020-10-31] MEDS: FOLIC ACID 1 MG TAB PO SCH (08:59)
[2020-10-31] MEDS: CEFEPIME HCL 2 GM in D5W MINI-BAG PLUS 50 ML IV SCH ×2 (08:59→22:27)
[2020-10-31] MEDS: LACTOBACILLUS ACIDOPHILUS CAP (BACID) PO SCH ×4 (08:59→20:23)
[2020-10-31] MEDS: SIMVASTATIN 20 MG TAB PO SCH (08:59)
[2020-10-31] MEDS: VITAMIN D 1,000 INTERNATIONAL UNITS TABLET PO SCH (09:00)
[2020-10-31] MEDS: THIAMINE 100 MG TAB PO SCH (09:00)
[2020-10-31] MEDS ORDERED: BENAZEPRIL 20 MG TAB PO SCH (09:00)
[2020-10-31] MEDS: MULTIVITAMINS/MINERALS THERAP 1 TAB PO SCH (09:01)
[2020-10-31] MEDS ORDERED: ACYCLOVIR 900 MG in D5W 250 ML IV SCH (10:00)
[2020-10-31] MEDS: ACYCLOVIR 900 MG in D5W 250 ML IV SCH ×2 (11:08→22:27)
[2020-10-31] MEDS ORDERED: HALOPERIDOL 5MG/ML VIAL (J1630 PER 1) IV ONE (17:25)
[2020-10-31] MEDS ORDERED: FUROSEMIDE 40MG/4ML VIAL (J1940) IV ONE (18:00)
[2020-10-31 18:23] LABS: ABG BASE EXCESS -2.8 (-2.0-2.0); ABG HCO3 21.3 MEQ/L (22.0-26.0); ABG O2 SATURATION 94.3 % (95.0-99.0); ABG PARTIAL PRESSURE O2 71.6 mmHg (75.0-100.0); ABG TOTAL CO2 22.4 MEQ/L (23.0-31.0); ABG pH (ARTERIAL) 7.402 UNITS (7.350-7.450)
[2020-10-31 18:48] LABS: HEMATOCRIT 36.4 % (42.0-52.0); HEMOGLOBIN 12.1 g/dl (13.5-17.5); MEAN CORPUSCULAR HEMOGLOBIN 29.7 pg (27.0-33.0); MEAN CORPUSCULAR HGB CONC 33.2 g/dl (32.0-36.5); MEAN CORPUSCULAR VOLUME 89.2 fl (80.0-96.0); PLATELET COUNT, AUTOMATED 175 10^3/uL (150-450); RED BLOOD COUNT 4.08 10^6/uL (4.30-6.10); WHITE BLOOD COUNT 29.9 10^3/uL (4.0-10.0)
[2020-10-31 19:15] LABS: CK-MB VALUE MASS 3.3 NG/ML (<3.6); CPK CREATINE PHOSPHOKINASE 423 U/L (39-308); MB/CK RELATIVE INDEX 0.78 (< OR =4); TROPONIN I 0.02 NG/ML (< 0.10)
[2020-10-31 19:16] LABS: ALBUMIN 2.5 GM/DL (3.2-5.2); BILIRUBIN,TOTAL 0.4 MG/DL (0.2-1.0); CALCIUM LEVEL 8.4 MG/DL (8.8-10.2); CREATININE FOR GFR 1.86 MG/DL (0.70-1.30); GLOMERULAR FILTRATION RATE 37.2 (>35); POTASSIUM SERUM 3.9 MEQ/L (3.5-5.1); TOTAL PROTEIN 6.2 GM/DL (6.4-8.2); VANCOMYCIN LEVEL TROUGH 9.8 UG/ML (10.0-20.0)
[2020-10-31] MEDS ORDERED: NITROPRUSSIDE SODIUM 50 MG in IV 1 EA IV SCH (20:00)
[2020-10-31] MEDS ORDERED: FUROSEMIDE 100MG/10ML VIAL (J1940) IV ONE (20:15)
[2020-10-31] MEDS ORDERED: CHLOROTHIAZIDE 500MG VIAL IV ONE (20:15)
[2020-10-31 21:16] LABS: ABG HCO3 21.2 MEQ/L (22.0-26.0); ABG O2 SATURATION 97.4 % (95.0-99.0); ABG PARTIAL PRESSURE CO2 31.6 mmHg (35.0-45.0); ABG PARTIAL PRESSURE O2 95.4 mmHg (75.0-100.0); ABG STANDARD HCO3 22.8 MEQ/L (22.0-26.0); ABG TOTAL CO2 22.2 MEQ/L (23.0-31.0); ABG pH (ARTERIAL) 7.445 UNITS (7.350-7.450)
[2020-10-31] MEDS: VANCOMYCIN HCL 1,000 MG, VIAL MATE ADAPTER 1 EACH in NS 250 ML IV SCH (22:11)
[2020-11-01] VITALS (60 sets, daily range): BP systolic 118–192; BP diastolic 57–118
[2020-11-01] MEDS ORDERED: LABETALOL HCL 200 MG in D5W 160 ML IV SCH (01:00)
[2020-11-01] MEDS ORDERED: FUROSEMIDE 40MG/4ML VIAL (J1940) IV SCH ×2 (02:00→08:00)
[2020-11-01] MEDS: LEVALBUTEROL 1.25 MG/0.5 ML CONCENTRATE NEB INH SCH ×5 (03:34→19:18)
[2020-11-01 04:26] LABS: BASO # 0.1 10^3/uL (0.0-0.2); BASO % 0.2 % (0.0-1.0); HEMATOCRIT 33.9 % (42.0-52.0); HEMOGLOBIN 11.3 g/dl (13.5-17.5); LYMPH # 0.5 10^3/uL (1.5-5.0); LYMPH % 1.7 % (24.0-44.0); MEAN CORPUSCULAR HEMOGLOBIN 29.5 pg (27.0-33.0); MEAN CORPUSCULAR HGB CONC 33.3 g/dl (32.0-36.5); MEAN CORPUSCULAR VOLUME 88.5 fl (80.0-96.0); MONO # 1.3 10^3/uL (0.0-0.8); MONO % 4.2 % (2.0-8.0); NEUTROPHILS # 27.8 10^3/uL (1.5-8.5); NEUTROPHILS % 92.7 % (36.0-66.0); PLATELET COUNT, AUTOMATED 168 10^3/uL (150-450); RED BLOOD COUNT 3.83 10^6/uL (4.30-6.10)
[2020-11-01 04:51] LABS: CALCIUM LEVEL 8.5 MG/DL (8.8-10.2); CREATININE FOR GFR 2.28 MG/DL (0.70-1.30); GLOMERULAR FILTRATION RATE 29.4 (>35); POTASSIUM SERUM 3.5 MEQ/L (3.5-5.1)
[2020-11-01] MEDS: LIDOCAINE 5% (LIDODERM) PATCH TD SCH (06:51)
[2020-11-01 06:57] LABS: C REACTIVE PROTEIN QUANTITATIV 31.5 MG/DL (0.00-0.30)
[2020-11-01 07:12] LABS: ERYTHROCYTE SEDIMENTATION RATE 82 mm/hr (0-20)
[2020-11-01] MEDS ORDERED: NS 500 ML IV ONE (08:35)
[2020-11-01] MEDS: HumaLOG INSULIN (NovoLOG) PER UNIT SC SCH ×4 (09:06→20:26)
[2020-11-01] MEDS: SIMVASTATIN 20 MG TAB PO SCH (09:07)
[2020-11-01] MEDS: VITAMIN D 1,000 INTERNATIONAL UNITS TABLET PO SCH (09:07)
[2020-11-01] MEDS: THIAMINE 100 MG TAB PO SCH (09:07)
[2020-11-01] MEDS: FOLIC ACID 1 MG TAB PO SCH (09:07)
[2020-11-01] MEDS: LACTOBACILLUS ACIDOPHILUS CAP (BACID) PO SCH ×4 (09:07→20:47)
[2020-11-01] MEDS: CEFEPIME HCL 2 GM in D5W MINI-BAG PLUS 50 ML IV SCH ×2 (09:08→21:47)
[2020-11-01] MEDS: MULTIVITAMINS/MINERALS THERAP 1 TAB PO SCH (09:08)
[2020-11-01] MEDS: ACYCLOVIR 900 MG in D5W 250 ML IV SCH ×2 (09:43→22:35)
[2020-11-01] MEDS: ACETAMINOPHEN TAB 650MG DOSE (2X325MG) PO PRN ×2 (09:43→16:23)
[2020-11-01 09:52] LABS: HIV 1&2 SCREEN CENTAUR NEGATIVE (NEGATIVE)
[2020-11-01] MEDS: DOXYCYCLINE HYCLATE 100 MG in D5W MINI-BAG PLUS 100 ML IV SCH (12:41)
[2020-11-01] MEDS: ISOSORBIDE DIN. (ISORDIL) 20 MG TAB PO SCH (18:00)
[2020-11-01] MEDS: **NOTE PATIENT COMMENT** MISC XX SCH (19:00)
[2020-11-01] MEDS: VANCOMYCIN HCL 1,000 MG, VIAL MATE ADAPTER 1 EACH in NS 250 ML IV SCH (20:09)
[2020-11-01 20:52] LABS: ABG BASE EXCESS -0.8 (-2.0-2.0); ABG HCO3 21.9 MEQ/L (22.0-26.0); ABG PARTIAL PRESSURE CO2 30.1 mmHg (35.0-45.0); ABG PARTIAL PRESSURE O2 60.2 mmHg (75.0-100.0); ABG STANDARD HCO3 23.7 MEQ/L (22.0-26.0); ABG TOTAL CO2 22.8 MEQ/L (23.0-31.0)
[2020-11-01] MEDS: LABETALOL 100MG/20ML VIAL IV SCH (22:54)
[2020-11-02] VITALS (25 sets, daily range): BP systolic 124–159; BP diastolic 57–94
[2020-11-02] MEDS: ISOSORBIDE DIN. (ISORDIL) 20 MG TAB PO SCH ×4 (00:01→18:39)
[2020-11-02] MEDS: DOXYCYCLINE HYCLATE 100 MG in D5W MINI-BAG PLUS 100 ML IV SCH ×2 (00:01→12:13)
[2020-11-02] MEDS: LEVALBUTEROL 1.25 MG/0.5 ML CONCENTRATE NEB INH SCH ×6 (00:13→19:51)
[2020-11-02] MEDS: LABETALOL 100MG/20ML VIAL IV SCH ×4 (05:09→23:00)
[2020-11-02 05:10] LABS: BASO % 0.1 % (0.0-1.0); HEMATOCRIT 29.1 % (42.0-52.0); HEMOGLOBIN 9.9 g/dl (13.5-17.5); LYMPH # 0.5 10^3/uL (1.5-5.0); LYMPH % 1.6 % (24.0-44.0); MEAN CORPUSCULAR HEMOGLOBIN 29.5 pg (27.0-33.0); MEAN CORPUSCULAR VOLUME 86.6 fl (80.0-96.0); MONO # 1.2 10^3/uL (0.0-0.8); MONO % 4.1 % (2.0-8.0); NEUTROPHILS # 27.7 10^3/uL (1.5-8.5); NEUTROPHILS % 93.2 % (36.0-66.0); PLATELET COUNT, AUTOMATED 156 10^3/uL (150-450); RED BLOOD COUNT 3.36 10^6/uL (4.30-6.10); WHITE BLOOD COUNT 29.7 10^3/uL (4.0-10.0)
[2020-11-02] MEDS: ACETAMINOPHEN TAB 650MG DOSE (2X325MG) PO PRN ×2 (05:10→16:47)
[2020-11-02 05:45] LABS: CALCIUM LEVEL 8.2 MG/DL (8.8-10.2); CREATININE FOR GFR 2.03 MG/DL (0.70-1.30); GLOMERULAR FILTRATION RATE 33.6 (>35); POTASSIUM SERUM 3.6 MEQ/L (3.5-5.1)
[2020-11-02] MEDS: LACTOBACILLUS ACIDOPHILUS CAP (BACID) PO SCH ×4 (08:00→21:06)
[2020-11-02] MEDS: SIMVASTATIN 20 MG TAB PO SCH (08:56)
[2020-11-02] MEDS: VITAMIN D 1,000 INTERNATIONAL UNITS TABLET PO SCH (08:56)
[2020-11-02] MEDS: THIAMINE 100 MG TAB PO SCH (08:57)
[2020-11-02] MEDS: MULTIVITAMINS/MINERALS THERAP 1 TAB PO SCH (08:57)
[2020-11-02] MEDS: CEFEPIME HCL 2 GM in D5W MINI-BAG PLUS 50 ML IV SCH ×2 (08:57→21:06)
[2020-11-02] MEDS: FOLIC ACID 1 MG TAB PO SCH (08:57)
[2020-11-02] MEDS: LIDOCAINE 5% (LIDODERM) PATCH TD SCH (08:58)
[2020-11-02] MEDS: HumaLOG INSULIN (NovoLOG) PER UNIT SC SCH ×4 (08:58→21:00)
[2020-11-02] MEDS: ACYCLOVIR 900 MG in D5W 250 ML IV SCH ×2 (10:39→22:18)
[2020-11-02] MEDS: NS 0.45% 1,000 ML IV SCH (18:44)
[2020-11-02] MEDS: VANCOMYCIN HCL 1,000 MG, VIAL MATE ADAPTER 1 EACH in NS 250 ML IV SCH (19:33)
[2020-11-02] MEDS: **NOTE PATIENT COMMENT** MISC XX SCH (21:07)
[2020-11-03] VITALS (18 sets, daily range): BP systolic 131–169; BP diastolic 59–90
[2020-11-03] MEDS: DOXYCYCLINE HYCLATE 100 MG in D5W MINI-BAG PLUS 100 ML IV SCH ×2 (00:14→12:00)
[2020-11-03] MEDS: ISOSORBIDE DIN. (ISORDIL) 20 MG TAB PO SCH ×4 (00:14→17:05)
[2020-11-03] MEDS: LEVALBUTEROL 1.25 MG/0.5 ML CONCENTRATE NEB INH SCH ×7 (00:57→23:25)
[2020-11-03] MEDS: LABETALOL 100MG/20ML VIAL IV SCH ×4 (04:52→23:00)
[2020-11-03 05:51] LABS: BASO % 0.1 % (0.0-1.0); HEMATOCRIT 26.7 % (42.0-52.0); HEMOGLOBIN 8.9 g/dl (13.5-17.5); LYMPH # 0.3 10^3/uL (1.5-5.0); LYMPH % 1.4 % (24.0-44.0); MEAN CORPUSCULAR HEMOGLOBIN 29.1 pg (27.0-33.0); MEAN CORPUSCULAR HGB CONC 33.3 g/dl (32.0-36.5); MEAN CORPUSCULAR VOLUME 87.3 fl (80.0-96.0); MONO % 4.2 % (2.0-8.0); NEUTROPHILS # 21.1 10^3/uL (1.5-8.5); NEUTROPHILS % 93.5 % (36.0-66.0); PLATELET COUNT, AUTOMATED 141 10^3/uL (150-450); RED BLOOD COUNT 3.06 10^6/uL (4.30-6.10); WHITE BLOOD COUNT 22.6 10^3/uL (4.0-10.0)
[2020-11-03 06:15] LABS: CREATININE FOR GFR 1.78 MG/DL (0.70-1.30); GLOMERULAR FILTRATION RATE 39.1 (>35); POTASSIUM SERUM 2.7 MEQ/L (3.5-5.1)
[2020-11-03] MEDS ORDERED: POTASSIUM CHLORIDE 10MEQ SR TABLET PO ONE (06:45)
[2020-11-03] MEDS ORDERED: KCL 10MEQ/100ML SWI (KRUN) 10 MEQ in IV 1 EA IV SCH (08:00)
[2020-11-03] MEDS ORDERED: KCL 20MEQ IN 100ML SWI (KRUN) 20 MEQ in IV 1 EA IV ONE ×2 (08:00)
[2020-11-03] MEDS: LIDOCAINE 5% (LIDODERM) PATCH TD SCH (08:55)
[2020-11-03] MEDS: HumaLOG INSULIN (NovoLOG) PER UNIT SC SCH ×4 (08:55→21:00)
[2020-11-03] MEDS: CEFEPIME HCL 2 GM in D5W MINI-BAG PLUS 50 ML IV SCH ×2 (08:56→21:27)
[2020-11-03] MEDS: LACTOBACILLUS ACIDOPHILUS CAP (BACID) PO SCH ×4 (08:56→21:00)
[2020-11-03] MEDS: SIMVASTATIN 20 MG TAB PO SCH (08:56)
[2020-11-03] MEDS: FOLIC ACID 1 MG TAB PO SCH (08:56)
[2020-11-03] MEDS: VITAMIN D 1,000 INTERNATIONAL UNITS TABLET PO SCH (08:56)
[2020-11-03] MEDS: THIAMINE 100 MG TAB PO SCH (08:56)
[2020-11-03] MEDS: MULTIVITAMINS/MINERALS THERAP 1 TAB PO SCH (08:56)
[2020-11-03] MEDS ORDERED: KCL 10MEQ/100ML SWI (KRUN) 10 MEQ in IV 1 EA IV ONE (09:00)
[2020-11-03] MEDS: ACYCLOVIR 900 MG in D5W 250 ML IV SCH ×2 (10:01→23:18)
[2020-11-03] MEDS: NS 0.45% 1,000 ML IV SCH (16:23)
[2020-11-03 18:01] LABS: CREATININE FOR GFR 2.05 MG/DL (0.70-1.30); GLOMERULAR FILTRATION RATE 33.3 (>35); POTASSIUM SERUM 3.8 MEQ/L (3.5-5.1)
[2020-11-03] MEDS: **NOTE PATIENT COMMENT** MISC XX SCH (21:00)
[2020-11-03] MEDS: VANCOMYCIN HCL 1,000 MG, VIAL MATE ADAPTER 1 EACH in NS 250 ML IV SCH (21:27)
[2020-11-03 22:46] LABS: ABG BASE EXCESS -1.6 (-2.0-2.0); ABG HCO3 21.5 MEQ/L (22.0-26.0); ABG O2 SATURATION 85.5 % (95.0-99.0); ABG PARTIAL PRESSURE CO2 30.3 mmHg (35.0-45.0); ABG STANDARD HCO3 22.9 MEQ/L (22.0-26.0); ABG TOTAL CO2 22.4 MEQ/L (23.0-31.0); ABG pH (ARTERIAL) 7.468 UNITS (7.350-7.450)
[2020-11-03 22:47] LABS: ABG PARTIAL PRESSURE O2 48.8 mmHg (75.0-100.0)
[2020-11-03] MEDS: KCL 20MEQ IN D5W 1000ML 1,000 ML IV SCH (23:54)
[2020-11-04] VITALS (41 sets, daily range): BP systolic 128–187; BP diastolic 57–86
[2020-11-04] MEDS: DOXYCYCLINE HYCLATE 100 MG in D5W MINI-BAG PLUS 100 ML IV SCH ×2 (00:11→12:23)
[2020-11-04] MEDS ORDERED: FUROSEMIDE 100MG/10ML VIAL (J1940) IV ONE (01:00)
[2020-11-04] MEDS: LEVALBUTEROL 1.25 MG/0.5 ML CONCENTRATE NEB INH SCH ×5 (04:00→19:25)
[2020-11-04] MEDS: ISOSORBIDE DIN. (ISORDIL) 20 MG TAB PO SCH ×4 (04:39→17:47)
[2020-11-04 05:07] LABS: BASO % 0.1 % (0.0-1.0); EOS % 0.2 % (0.0-3.0); HEMATOCRIT 28.2 % (42.0-52.0); HEMOGLOBIN 9.3 g/dl (13.5-17.5); LYMPH # 0.4 10^3/uL (1.5-5.0); MEAN CORPUSCULAR HEMOGLOBIN 29.5 pg (27.0-33.0); MEAN CORPUSCULAR VOLUME 89.5 fl (80.0-96.0); MONO % 5.3 % (2.0-8.0); NEUTROPHILS # 17.2 10^3/uL (1.5-8.5); NEUTROPHILS % 89.3 % (36.0-66.0); PLATELET COUNT, AUTOMATED 152 10^3/uL (150-450); RED BLOOD COUNT 3.15 10^6/uL (4.30-6.10); WHITE BLOOD COUNT 19.3 10^3/uL (4.0-10.0)
[2020-11-04] MEDS: LABETALOL 100MG/20ML VIAL IV SCH (05:08)
[2020-11-04 05:24] LABS: CALCIUM LEVEL 8.1 MG/DL (8.8-10.2); CREATININE FOR GFR 2.11 MG/DL (0.70-1.30); GLOMERULAR FILTRATION RATE 32.2 (>35); POTASSIUM SERUM 3.9 MEQ/L (3.5-5.1)
[2020-11-04] MEDS: LACTOBACILLUS ACIDOPHILUS CAP (BACID) PO SCH ×4 (07:56→20:17)
[2020-11-04] MEDS: HumaLOG INSULIN (NovoLOG) PER UNIT SC SCH ×3 (08:00→18:02)
[2020-11-04] MEDS: FOLIC ACID 1 MG TAB PO SCH (08:48)
[2020-11-04] MEDS: THIAMINE 100 MG TAB PO SCH (08:48)
[2020-11-04] MEDS: MULTIVITAMINS/MINERALS THERAP 1 TAB PO SCH (08:48)
[2020-11-04] MEDS: SIMVASTATIN 20 MG TAB PO SCH (08:49)
[2020-11-04] MEDS: VITAMIN D 1,000 INTERNATIONAL UNITS TABLET PO SCH (08:49)
[2020-11-04] MEDS: CEFEPIME HCL 2 GM in D5W MINI-BAG PLUS 50 ML IV SCH ×2 (08:58→21:22)
[2020-11-04] MEDS: LIDOCAINE 5% (LIDODERM) PATCH TD SCH (08:58)
[2020-11-04] MEDS: ACYCLOVIR 900 MG in D5W 250 ML IV SCH ×2 (10:10→22:12)
[2020-11-04] MEDS: hydrALAZINE 20MG/ML 1ML VIAL (J0360 PER 20MG) IV SCH ×2 (12:22→18:02)
[2020-11-04] MEDS ORDERED: FUROSEMIDE 20MG/2ML VIAL (J1940) IV ONE (13:00)
[2020-11-04 16:07] LABS: CRYPTOCOCCUS ANTIGEN SER Negative (Negative)
[2020-11-04 17:18] LABS: PH BODY FLUID 7.728 UNITS (NOT ESTABLISHED); SOURCE, BODY FLUID pH PLEURAL
[2020-11-04 17:30] LABS: SOURCE, BODY FLUID PLEURAL
[2020-11-04 17:31] LABS: APPEARANCE, BODY FLUID CLOUDY (CLEAR); PLEURAL FL COLOR YELLOW (COLORLESS)
[2020-11-04] MEDS: KCL 20MEQ IN D5W 1000ML 1,000 ML IV SCH (17:47)
[2020-11-04 18:05] LABS: AMYLASE, BODY FLUID 3 U/L (NOT ESTABLISHED); CHOLESTEROL, BODY FLUID < 50 MG/DL (NOT ESTABLISHED); LDH, BODY FLUID 191 U/L (NOT ESTABLISHED); SOURCE, BODY FLUID ALBUMIN PLEURAL; SOURCE, BODY FLUID AMYLASE PLEURAL; SOURCE, BODY FLUID CHOL PLEURAL; SOURCE, BODY FLUID GLUCOSE PLEURAL; SOURCE, BODY FLUID LDH PLEURAL; SOURCE, BODY FLUID TOT PROTEIN PLEURAL; SOURCE, BODY FLUID TRIG PLEURAL; TOTAL PROTEIN, BODY FLUID 1.2 G/DL (NOT ESTABLISHED); TRIGLYCERIDE, BODY FLUID 5 MG/DL (NOT ESTABLISHED)
[2020-11-04] MEDS: VANCOMYCIN HCL 1,000 MG, VIAL MATE ADAPTER 1 EACH in NS 250 ML IV SCH (20:14)
[2020-11-04] MEDS: **NOTE PATIENT COMMENT** MISC XX SCH (21:24)
[2020-11-05] VITALS (24 sets, daily range): BP systolic 137–171; BP diastolic 56–73
[2020-11-05] MEDS: DOXYCYCLINE HYCLATE 100 MG in D5W MINI-BAG PLUS 100 ML IV SCH ×3 (00:10→23:13)
[2020-11-05] MEDS: hydrALAZINE 20MG/ML 1ML VIAL (J0360 PER 20MG) IV SCH ×4 (00:11→18:00)
[2020-11-05] MEDS: LEVALBUTEROL 1.25 MG/0.5 ML CONCENTRATE NEB INH SCH ×6 (04:00→19:30)
[2020-11-05] MEDS: ISOSORBIDE DIN. (ISORDIL) 20 MG TAB PO SCH ×5 (05:21→23:13)
[2020-11-05 05:36] LABS: BASO % 0.1 % (0.0-1.0); EOS % 0.2 % (0.0-3.0); HEMATOCRIT 27.7 % (42.0-52.0); HEMOGLOBIN 9.1 g/dl (13.5-17.5); LYMPH # 0.4 10^3/uL (1.5-5.0); LYMPH % 2.3 % (24.0-44.0); MEAN CORPUSCULAR HEMOGLOBIN 29.3 pg (27.0-33.0); MEAN CORPUSCULAR HGB CONC 32.9 g/dl (32.0-36.5); MEAN CORPUSCULAR VOLUME 89.1 fl (80.0-96.0); MONO # 0.7 10^3/uL (0.0-0.8); MONO % 4.1 % (2.0-8.0); NEUTROPHILS # 16.3 10^3/uL (1.5-8.5); NEUTROPHILS % 92.4 % (36.0-66.0); PLATELET COUNT, AUTOMATED 162 10^3/uL (150-450); RED BLOOD COUNT 3.11 10^6/uL (4.30-6.10); WHITE BLOOD COUNT 17.7 10^3/uL (4.0-10.0)
[2020-11-05 05:52] LABS: CALCIUM LEVEL 7.9 MG/DL (8.8-10.2); CREATININE FOR GFR 2.32 MG/DL (0.70-1.30); GLOMERULAR FILTRATION RATE 28.8 (>35); POTASSIUM SERUM 3.6 MEQ/L (3.5-5.1)
[2020-11-05] MEDS: HumaLOG INSULIN (NovoLOG) PER UNIT SC SCH ×5 (05:58→23:36)
[2020-11-05] MEDS: LACTOBACILLUS ACIDOPHILUS CAP (BACID) PO SCH ×4 (08:00→20:18)
[2020-11-05] MEDS: THIAMINE 100 MG TAB PO SCH (09:00)
[2020-11-05] MEDS: SIMVASTATIN 20 MG TAB PO SCH (09:00)
[2020-11-05] MEDS: MULTIVITAMINS/MINERALS THERAP 1 TAB PO SCH (09:00)
[2020-11-05] MEDS: FOLIC ACID 1 MG TAB PO SCH (09:00)
[2020-11-05] MEDS: VITAMIN D 1,000 INTERNATIONAL UNITS TABLET PO SCH (09:00)
[2020-11-05] MEDS: CEFEPIME HCL 1 GM in D5W MINI-BAG PLUS 50 ML IV SCH ×2 (09:43→20:32)
[2020-11-05] MEDS: LIDOCAINE 5% (LIDODERM) PATCH TD SCH (09:44)
[2020-11-05 10:19] LABS: INR 1.61; PROTHROMBIN TIME 19.5 SECONDS (12.5-14.3)
[2020-11-05] MEDS: ACYCLOVIR 900 MG in D5W 250 ML IV SCH (10:44)
[2020-11-05] MEDS: KCL 20MEQ IN D5W 1000ML 1,000 ML IV SCH (11:05)
[2020-11-05 13:00] LABS: APPEARANCE, CSF CLEAR (CLEAR); COLOR, CSF COLORLESS (COLORLESS); CSF TUBE# CELL CNT TUBE 1
[2020-11-05 13:01] LABS: APPEARANCE, CSF CLEAR (CLEAR); COLOR, CSF COLORLESS (COLORLESS); CSF TUBE# CELL CNT TUBE 4
[2020-11-05 13:11] LABS: CSF TUBE# GLU TUBE 2; CSF TUBE# TP TUBE 2; GLUCOSE CSF 106 MG/DL (40-75); TOTAL PROTEIN,CSF 74 MG/DL (15-45)
[2020-11-05 16:17] LABS: C REACTIVE PROTEIN QUANTITATIV 26.5 MG/DL (0.00-0.30)
[2020-11-05 16:38] LABS: ERYTHROCYTE SEDIMENTATION RATE 106 mm/hr (0-20)
[2020-11-05] MEDS ORDERED: ACETAMINOPHEN 650 MG SUPP PR PRN (18:40)
[2020-11-05] MEDS: **NOTE PATIENT COMMENT** MISC XX SCH (20:32)
[2020-11-05 21:00] LABS: ABG BASE EXCESS -2.5 (-2.0-2.0); ABG HCO3 20.2 MEQ/L (22.0-26.0); ABG O2 SATURATION 88.5 % (95.0-99.0); ABG PARTIAL PRESSURE CO2 28.2 mmHg (35.0-45.0); ABG PARTIAL PRESSURE O2 52.8 mmHg (75.0-100.0); ABG STANDARD HCO3 22.2 MEQ/L (22.0-26.0); ABG TOTAL CO2 21.1 MEQ/L (23.0-31.0); ABG pH (ARTERIAL) 7.473 UNITS (7.350-7.450)
[2020-11-06] VITALS (8 sets, daily range): BP systolic 120–155; BP diastolic 59–70
[2020-11-06] MEDS: LEVALBUTEROL 1.25 MG/0.5 ML CONCENTRATE NEB INH SCH ×4 (00:12→11:17)
[2020-11-06 04:43] LABS: BASO % 0.1 % (0.0-1.0); EOS # 0.1 10^3/uL (0.0-0.5); EOS % 0.2 % (0.0-3.0); HEMATOCRIT 28.9 % (42.0-52.0); HEMOGLOBIN 9.3 g/dl (13.5-17.5); LYMPH # 0.6 10^3/uL (1.5-5.0); LYMPH % 2.7 % (24.0-44.0); MEAN CORPUSCULAR HGB CONC 32.2 g/dl (32.0-36.5); MONO % 4.8 % (2.0-8.0); NEUTROPHILS # 19.1 10^3/uL (1.5-8.5); NEUTROPHILS % 90.9 % (36.0-66.0); PLATELET COUNT, AUTOMATED 177 10^3/uL (150-450); RED BLOOD COUNT 3.21 10^6/uL (4.30-6.10)
[2020-11-06 04:53] LABS: CALCIUM LEVEL 8.2 MG/DL (8.8-10.2); CREATININE FOR GFR 2.53 MG/DL (0.70-1.30); GLOMERULAR FILTRATION RATE 26.1 (>35); POTASSIUM SERUM 3.6 MEQ/L (3.5-5.1)
[2020-11-06] MEDS: hydrALAZINE 20MG/ML 1ML VIAL (J0360 PER 20MG) IV SCH ×3 (05:06→12:00)
[2020-11-06] MEDS: ISOSORBIDE DIN. (ISORDIL) 20 MG TAB PO SCH ×2 (05:07→12:00)
[2020-11-06] MEDS: HumaLOG INSULIN (NovoLOG) PER UNIT SC SCH ×2 (05:07→13:11)
[2020-11-06] MEDS: LACTOBACILLUS ACIDOPHILUS CAP (BACID) PO SCH ×2 (08:00→12:23)
[2020-11-06] MEDS: MULTIVITAMINS/MINERALS THERAP 1 TAB PO SCH (08:08)
[2020-11-06] MEDS: FOLIC ACID 1 MG TAB PO SCH (08:08)
[2020-11-06] MEDS: THIAMINE 100 MG TAB PO SCH (08:08)
[2020-11-06] MEDS: VITAMIN D 1,000 INTERNATIONAL UNITS TABLET PO SCH (08:09)
[2020-11-06] MEDS: SIMVASTATIN 20 MG TAB PO SCH (08:09)
[2020-11-06] MEDS ORDERED: D5W 1,000 ML IV SCH (09:25)
[2020-11-06] MEDS: LIDOCAINE 5% (LIDODERM) PATCH TD SCH (10:04)
[2020-11-06] MEDS ORDERED: PIPERACILLIN/TAZOBACTAM SOD 3.375 GM in D5W MINI-BAG PLUS 50 ML IV SCH (11:00)
[2020-11-06] MEDS: DOXYCYCLINE HYCLATE 100 MG in D5W MINI-BAG PLUS 100 ML IV SCH (13:11)
[2020-11-06 14:26] LABS: VANCOMYCIN RANDOM 18.5 UG/ML
[2020-11-06] MEDS ORDERED: VANCOMYCIN INTERMITTENT/PULSE DOSING BY CLINICAL PHARMACIST PER DOSING PROTOCOL XX SCH (14:45)
[2020-11-06] MEDS ORDERED: LORazepam 2 MG/ML VIAL IV PRN (15:20)
[2020-11-06] MEDS ORDERED: SCOPOLAMINE 1MG TRANSDERMAL PATCH TOP PRN (15:20)
[2020-11-06] MEDS: MORPHINE 2 MG/ML 1ML VIAL (J2270) IV PRN (18:04)
[2020-11-07 00:07] LABS: Lyme Disease IgG/IgM Antibodie <0.91 ISR (0.00-0.90); Lyme Disease IgM Ab Quantitati <0.80 index (0.00-0.79)
[2020-11-07] MEDS: MORPHINE 2 MG/ML 1ML VIAL (J2270) IV PRN (07:52)
[2020-11-07] MEDS ORDERED: ATRO1OPD PO (10:16)
[2020-11-07] MEDS ORDERED: ATIV1TAB7 PO (10:16)
[2020-11-07] MEDS ORDERED: TRAN1DIS4 TOP (10:16)
[2020-11-07] MEDS ORDERED: MORP10SO PO (10:16)
[2020-11-07] MEDS ORDERED: ONDA4TAB6 PO (10:16)
[2020-11-07] MEDS ORDERED: LEVS0.124 SL (10:16)
[2020-11-07 20:08] LABS: ANA (HEP2) Negative (.); ANTINUCLEAR ANTIBODIES DIRECT Negative (Negative)
== END 2020-11-07 13:02 | disposition hospice, home (50) | DRG 853 ==
LOC: M ED 22:02 → M ED INP 22:03 → M ICU 10-30 04:54
PROVIDERS: ADMIT General Practice; ATTEND Internal Medicine
PROC: 0JBR0ZZ Excision of Left Foot Subcutaneous Tissue and Fascia, Open Approach (ICD-10-PCS; principal; 2020-11-01)
PROC: 02HV33Z Insertion of Infusion Device into Superior Vena Cava, Percutaneous Approach (ICD-10-PCS; 2020-11-01)
PROC: 0W9B3ZX Drainage of Left Pleural Cavity, Percutaneous Approach, Diagnostic (ICD-10-PCS; 2020-11-04)
PROC: 009U3ZX Drainage of Spinal Canal, Percutaneous Approach, Diagnostic (ICD-10-PCS; 2020-11-05)
DX: A41.9 Sepsis, unspecified organism (principal); J96.01 Acute respiratory failure with hypoxia; I63.442 Cerebral infarction due to embolism of left cerebellar artery; I48.20 Chronic atrial fibrillation, unspecified; E87.2 Acidosis; G93.40 Encephalopathy, unspecified; I48.92 Unspecified atrial flutter; I16.1 Hypertensive emergency; I13.0 Hypertensive heart and chronic kidney disease with heart failure and stage 1 through stage 4 chronic kidney disease, or unspecified chronic kidney disease; E11.22 Type 2 diabetes mellitus with diabetic chronic kidney disease; N18.32 Chronic kidney disease, stage 3b; M10.9 Gout, unspecified; Z51.5 Encounter for palliative care; Z66 Do not resuscitate; F03.90 Unspecified dementia, unspecified severity, without behavioral disturbance, psychotic disturbance, mood disturbance, and anxiety; E78.5 Hyperlipidemia, unspecified; M54.2 Cervicalgia; L89.152 Pressure ulcer of sacral region, stage 2; I50.9 Heart failure, unspecified; J45.909 Unspecified asthma, uncomplicated; E53.8 Deficiency of other specified B group vitamins; R91.8 Other nonspecific abnormal finding of lung field; E11.621 Type 2 diabetes mellitus with foot ulcer; L97.529 Non-pressure chronic ulcer of other part of left foot with unspecified severity; R53.81 Other malaise; R53.1 Weakness; R29.6 Repeated falls; Z79.82 Long term (current) use of aspirin; Z79.84 Long term (current) use of oral hypoglycemic drugs; Z79.899 Other long term (current) drug therapy; Z86.73 Personal history of transient ischemic attack (TIA), and cerebral infarction without residual deficits